=== PATIENT | female | born 1985 | race Caucasian/White ===

== ENCOUNTER → 2018-04-11 | Day surgery (SDC) | payer OTHER ==
[~2018-04-11] MED LIST: PRENATE ELITE1 EAC2 PO
== END | disposition home or self-care (01) ==
LOC: CIR.AMB 06:35
DX: O34.32 Maternal care for cervical incompetence, second trimester (principal); Z34.82 Encounter for supervision of other normal pregnancy, second trimester

== ENCOUNTER 2018-06-15 10:02 | Outpatient (CLI) | payer OTHER | END 2018-06-15 11:02 | disposition home or self-care (01) | LOC: NST 10:02 | DX: Z34.82 Encounter for supervision of other normal pregnancy, second trimester (principal) ==

== ENCOUNTER 2018-07-10 08:43 | Outpatient (CLI) | payer OTHER | END 2018-07-10 09:18 | disposition home or self-care (01) | LOC: NST 08:43 | DX: O34.33 Maternal care for cervical incompetence, third trimester (principal); Z34.83 Encounter for supervision of other normal pregnancy, third trimester ==

== ENCOUNTER 2018-07-11 13:06 | Inpatient (IN) | payer OTHER ==
[~2018-07-11] VITALS: Ht 12.7 cm; Wt 67.1 kg
== END 2018-07-24 12:10 | disposition home or self-care (01) | DRG 833 ==
LOC: OB/GYN 13:06
PROC: 4A1HXCZ Monitoring of Products of Conception, Cardiac Rate, External Approach (ICD-10-PCS; principal; 2018-07-11)
PROC: BY4FZZZ Ultrasonography of Third Trimester, Single Fetus (ICD-10-PCS; 2018-07-13)
PROC: BU4CZZZ Ultrasonography of Uterus and Ovaries (ICD-10-PCS; 2018-07-20)
PROC: BY4CZZZ Ultrasonography of Second Trimester, Single Fetus (ICD-10-PCS; 2018-07-20)
DX: O34.33 Maternal care for cervical incompetence, third trimester (principal); Z34.83 Encounter for supervision of other normal pregnancy, third trimester

== ENCOUNTER 2018-09-05 15:15 | Inpatient (IN) | payer OTHER ==
[~2018-09-05] VITALS: Ht 167.6 cm; Wt 70.3 kg
== END 2018-09-23 12:32 | disposition home or self-care (01) | DRG 768 ==
LOC: SURG-SUITE 09-20 21:22 → LDR 09-20 21:22 → SURG-SUITE 09-21 02:00 → LDR 09-27 15:15
PROVIDERS: ADMIT Obstetrics & Gynecology
PROC: BY4FZZZ Ultrasonography of Third Trimester, Single Fetus (ICD-10-PCS; 2018-09-20)
PROC: BU4CZZZ Ultrasonography of Uterus and Ovaries (ICD-10-PCS; 2018-09-20)
PROC: 4A1HXCZ Monitoring of Products of Conception, Cardiac Rate, External Approach (ICD-10-PCS; 2018-09-20)
PROC: 10E0XZZ Delivery of Products of Conception, External Approach (ICD-10-PCS; principal; 2018-09-21)
PROC: 0HQ9XZZ Repair Perineum Skin, External Approach (ICD-10-PCS; 2018-09-21)
PROC: 0U9G7ZZ Drainage of Vagina, Via Natural or Artificial Opening (ICD-10-PCS; 2018-09-21)
PROC: 4A033R1 Measurement of Arterial Saturation, Peripheral, Percutaneous Approach (ICD-10-PCS; 2018-09-21)
DX: O70.1 Second degree perineal laceration during delivery (principal); Z37.0 Single live birth; O26.893 Other specified pregnancy related conditions, third trimester; L72.3 Sebaceous cyst; Z3A.39 39 weeks gestation of pregnancy

== ENCOUNTER 2018-09-13 09:46 | Outpatient (CLI) | payer OTHER | END 2018-09-13 10:43 | disposition home or self-care (01) | LOC: NST 09:46 | DX: Z34.83 Encounter for supervision of other normal pregnancy, third trimester (principal) ==